=== PATIENT | male | born 1995 ===

== ENCOUNTER → 2016-07-01 | Outpatient (REF) | payer OTHER ==
[2016-07-01 12:59] LABS: % NORMAL FORMS 35 % (>=4); IMMOTILITY 3 %; NON PROGRESSIVE MOTILITY (c) 10 %; PROGRESSIVE MOTILITY (a) 87 % (>=32); SPERM ABNORMAL FORMS HEAVY AMOUNT WBC'S; TOTAL MOTILITY 97 % (>=40)
[2016-07-01 13:00] LABS: SPERM# 179.2 M/Ejac (33-46); TOTAL FUNCTIONAL 88.6 M/Ejac.; TOTAL PROGRESSIVE SPERM 155.8 M/Ejac.
== END ==
LOC: M LAB REF 11:31
PROVIDERS: ATTEND Physician Assistant
DX: Z31.41 Encounter for fertility testing (principal)